=== PATIENT | male | born 1945 | race Caucasian/White ===

== ENCOUNTER 2021-10-07 12:05 | Outpatient (CLI) | payer MEDICARE ==
[~2021-10-07] VITALS: Ht 180.3 cm; Wt 7.0 kg
[2021-10-07] VITALS (8 sets, daily range): BP systolic 125–165; BP diastolic 78–97; PULSE 49–62; TEMP 97.8
--- NOTE | 2021-10-07 13:14 | NUR ---
Moderate sedation assessment completed after assessing patient in express. See merge for all vital signs, assessment, interventions, medication times.
--- NOTE | 2021-10-07 14:25 | NUR ---
Pt is back from [facility] after vertebroplasty. Pt is awake and alert, pwd, resp reg and unlabored. pt is updated on discharge plan. extra warm blankets provided, call light in reach.
--- NOTE | 2021-10-07 16:30 | NUR ---
Pt ready for departure at this time. Pt remained on bedrest till 153, after which hob was elevated and pt was able to drink a cup of coffee, have some water and a few crackers. Dr. Wayne came to see pt at this time, and pt reported still had some back discomfort, but nothing bad, stated it's "going in the right direction". Pt was able to get up with no problem, and ambulate with steady gait to bathroom in rm 11. Pt then was able to dress independently with no reports of pain limiting his movement. I have reviewed dc isntructions with pt and who both verbalize understanding. IV is dc'd with cath intact, dressing applied. pt escorted to exit via wheelchair, with his .
== END 2021-10-07 17:19 | disposition home or self-care (01) ==
LOC: COL.CAR 12:05
DX: M48.56XA Collapsed vertebra, not elsewhere classified, lumbar region, initial encounter for fracture (principal); Z87.891 Personal history of nicotine dependence
CPT/HCPCS: C1713; J2250; J3010